=== PATIENT | female | born 2000 | race Caucasian/White ===

== ENCOUNTER 2023-06-25 23:36 | Emergency (ER) | payer BC, SELFPAY ==
--- NOTE | 2023-06-25 | RAD_ITS ---
INDICATION: injury EXAMINATION/TECHNIQUE: X-RAY - LEFT XR Ankle Min 3 Views COMPARISON: None. FINDINGS: 3 views of the left ankle. BONES: Normal anatomic alignment without evidence of fracture or subluxation. No concerning bony lesion or abnormal sclerosis to suggest lesion. JOINTS: No significant degenerative change. SOFT TISSUES: Unremarkable. RAD/Ankle min 3 Views IMPRESSION: No acute osseous abnormality of the left ankle. Electronically Signed: Juni Munoz MD at 0:34 EDT ,
[2023-06-25 23:36] VITALS: BP 161/74; PULSE 107; RESP 20; TEMP 36.4; O2SAT 97
[2023-06-25 23:38] VITALS: BMI 36.0
--- NOTE | 2023-06-25 23:52 | RAD_ITS ---
INDICATION: injury EXAMINATION/TECHNIQUE: X-RAY - LEFT XR Foot Min 3 Views COMPARISON: None. FINDINGS: 3 views of the left foot. BONES: Normal anatomic alignment without evidence of fracture or subluxation. No concerning bony lesion or abnormal sclerosis to suggest lesion. JOINTS: No significant degenerative change. SOFT TISSUES: Type II os naviculare. RAD/Foot min 3 Views IMPRESSION: No acute osseous abnormality of the left foot. Type II os naviculare. Electronically Signed: Juni Munoz MD at 0:39 EDT ,
--- NOTE | 2023-06-25 23:52 | EX.ED.DYSGE1 ---
HPI History of Present Illness Chief Complaint: Lower Extremity Injury Informant: patient Onset/Context/Timing Onset: Today Narrative Narrative: Patient presents after tripped over a baby gate and fell down steps. She reported fell down approximately 8 steps. She complaining of pain to her left lower leg. She denies head or neck injury. She did not take anything for pain prior to arrival. No loss of consciousness. PFSH PFSH Medical History Asthma [place] syndrome Pituitary tumor Smoker Home Medications tirzepatide (weight loss) 2.5 mg/0.5 mL subcutaneous pen injector (Zepbound) 2.5 mg subcut QWEEK 06/25/23 [History Last Taken Unknown] Allergy/AdvReac Type Severity Reaction Status Date / Time morphine AdvReac Mild Nausea Verified 06/25/23 23:39 oxybutynin [From Ditropan] AdvReac Mild Nausea Verified 06/25/23 23:39 Surgical History H/O adenoidectomy H/O left knee surgery Hx of tonsillectomy Social History Smoking Status: Current every day smoker tobacco type: e-cigarettes ROS ROS ED Constitutional Constitutional ED: Denies chills or fever(s) Eyes Eyes: Denies change in vision or discharge from eye(s) ENT ENT ED: Denies discharge from eye(s), rhinorrhea or sore throat Cardiovascular Cardiovascular: Denies chest pain Respiratory/Chest Respiratory/Chest: Denies cough or dyspnea Gastrointestinal Gastrointestinal: Denies abdominal pain, nausea or vomiting Musculoskeletal Musculoskeletal: Reports extremity pain; Denies back pain or neck pain Integumentary Denies Abrasions or rash Neurologic Neurologic: Denies headache(s) or weakness Psychiatric Psychiatric: Denies anxiety or depression Allergic/Immunologic Allergic/Immunologic ED: Denies lip swelling or urticaria EXAM Physical Exam Const Vital Signs: 06/25/23 23:36 Temperature 97.6 F L Temperature Source Temporal Pulse Rate 107 H Respiratory Rate 20 H Blood Pressure 161/74 H Blood Pressure Mean 103 Pulse Ox 97 Oxygen Delivery Method Room Air Positive well nourished and well developed General Appearance ED: well developed HEENT Reports moist mucous membranes Eyes EOMs intact bilaterally Chest Wall inspection of chest normal and palpation of chest normal Resp normal respiratory effort and clear to auscultation bilaterally Cardio regular rhythm Rate: tachycardic GI non-tender Palpation: soft Extremity Extremity Narrative: Mild tender palpation along the proximal lateral left foot. Mild edema noted. Joints are stable with good range of motion. Good cap refill distally with normal sensation. No tenderness at the knee or proximal fibula. Neuro oriented x3 and no sensory deficits noted Motor Exam: strength 5/5 throughout Psych mental status grossly normal Skin no rashes or lesions noted MDM MDM MDM Narrative Medical decision making narrative: Patient is given Naprosyn along with Zofran. X-rays of the left ankle and foot obtained to evaluate potential fracture. Differential includes sprain, strain, contusion. Left ankle and left foot x-rays per my interpretation reveal no evidence of obvious fracture. Radiology interpretation is reviewed and agrees. Claus wrap applied to the left ankle and foot. She will be given crutches and may weight-bear as tolerated. She will take Tylenol or ibuprofen at home for pain. Radiography Diagnostic Testing: Clinical Impression(s) from Imaging Studies Ankle X-Ray 06/25/23 00:00 IMPRESSION: No acute osseous abnormality of the left ankle. Electronically Signed: Juni Munoz MD at 0:34 EDT , Foot X-Ray 06/25/23 23:52 IMPRESSION: No acute osseous abnormality of the left foot. Type II os naviculare. Electronically Signed: Juni Munoz MD at 0:39 EDT , Discharge Plan Triage Chief Complaint: Lower Extremity Injury ED Provider: Anabella Camejo Dx/Rx/DC Orders Clinical Impression: Left ankle sprain Instructions: ED Ankle Sprain (Adult) Prescriptions: No Action Zepbound 2.5 mg/0.5 mL pen injector 2.5 mg subcut QWEEK Primary Care Provider: Adair Gan Referrals: Adair Gan PA [Primary Care Provider] - 1 Week if not improving Disposition Disposition: Home, Self Care
[2023-06-25] MEDS: Ondansetron ODT 4 MG Tablet PO (23:56)
[2023-06-25] MEDS: Naproxen 500 MG Tablet PO (23:56)
== END 2023-06-26 01:17 | disposition home or self-care (01) ==
PROVIDERS: Emergency Provider Emergency Medicine; PCP Physician Assistant; Visit Provider Emergency Medicine
DX: S93.402A Sprain of unspecified ligament of left ankle, initial encounter (principal); F17.290 Nicotine dependence, other tobacco product, uncomplicated; W10.9XXA Fall (on) (from) unspecified stairs and steps, initial encounter
CPT/HCPCS: 73610; 73630; 99284